=== PATIENT | female | born 1980 | race Caucasian/White ===

== ENCOUNTER 2020-10-02 10:56 | Emergency (ER) | payer BC, MEDICAID ==
[~2020-10-02] VITALS: Ht 167.6 cm; Wt 65.2 kg
[~2020-10-02 10:56] MED LIST: CALC200T3 PO; PREN1TAB60 PO
[2020-10-02] MEDS ORDERED: MORPHINE SULFATE 4 MG/ML, 1ML ONE ×2 (11:29→14:45)
[2020-10-02] MEDS ORDERED: ONDANSETRON 2MG/ML, 2ML ONE ×2 (11:29→18:31)
[2020-10-02] MEDS ORDERED: SODIUM CHLORIDE 0.9% 1,000ML IVBOLUS ONE (11:30)
[2020-10-02] MEDS ORDERED: ONDANSETRON 2MG/ML, 2ML IVPush ONE (11:30)
[2020-10-02] MEDS ORDERED: MORPHINE SULFATE 4 MG/ML, 1ML IVPush PRN (11:30)
--- NOTE | 2020-10-02 11:47 | NUR ---
CLEAN CATCH UA OBTAINED PIV PLACED FREOM WHICH LABS WERE DRAWN THEN MEDICATED PER EMAR FOR PAIN AT 03/27
[2020-10-02 11:55] LABS: BASOPHILS % (AUTO) 0 % (0-1); EOSINOPHILS % (AUTO) 1 % (1-7); LYMPHOCYTES % (AUTO) 11 % (22-44); MEAN CORPUSCULAR HEMOGLOBIN 28.6 pg (27.0-34.8); MONOCYTES % (AUTO) 8 % (2-9); NEUTROPHILS % (AUTO) 80 % (42-75); PLATELET COUNT 205 x10^3/uL (130-400); RED BLOOD COUNT 4.78 x10^6/uL (3.82-5.3); RED CELL DISTRIBUTION WIDTH 13.6 % (9.6-15.2)
[2020-10-02 12:01] LABS: ALBUMIN 3.7 g/dL (3.4-5.0); ANION GAP 8 mmol/L (5-15); CALCIUM 8.7 mg/dL (8.5-10.1); CHLORIDE 105 mmol/L (98-107)
[2020-10-02 12:02] LABS: MICROSCOPIC INDICATED
[2020-10-02 12:08] LABS: ALANINE AMINOTRANSFERASE 22 U/L (12-78); ALKALINE PHOSPHATASE 70 U/L (45-117); BILIRUBIN,TOTAL 0.5 mg/dL (0.2-1.0); TOTAL PROTEIN 7.2 g/dL (6.4-8.2)
--- NOTE | 2020-10-02 12:16 | NUR ---
pain improved to 3/10
[2020-10-02 12:23] LABS: MD SCAN
--- NOTE | 2020-10-02 13:00 | NUR ---
Placed up for recheck as all testing resulted However, pain worsening to 7/10-erp to bedside to eval
--- NOTE | 2020-10-02 13:56 | NUR ---
to ct scan
[2020-10-02] MEDS ORDERED: OMNIPAQUE 350 MG/ML, 100ML BOTTLE ONE (14:11)
--- NOTE | 2020-10-02 14:42 | NUR ---
CT SCAN RESULTS REVIEWED-PROVIDER MADE AWARE LAST MEAL WAS 10/01 AT 8PM (SALAD)
--- NOTE | 2020-10-02 14:58 | NUR ---
REPORT TO [facility]
--- NOTE | 2020-10-02 14:59 | NUR ---
Report from LUCIANO Jimenez. Assumed care.
--- NOTE | 2020-10-02 15:12 | NUR ---
Pt updated on plan, pt resting comfortably, on phone with her dad.
[2020-10-02] MEDS ORDERED: CEFOTETAN PMX 1GM/50ML 50 ML IVPB ONE (15:30)
[2020-10-02] MEDS ORDERED: KETOROLAC 30 MG/1 ML ONE (16:13)
[2020-10-02] MEDS ORDERED: DEXAMETHASONE 4 MG/ML, 1ML ONE (16:13)
[2020-10-02 16:14] VITALS: BP 100/65
--- NOTE | 2020-10-02 16:22 | NUR ---
Pt tranpsorted to [place]. Pt's keys given to security, her will come and pick them up.
[2020-10-02] MEDS ORDERED: BUPIVACAINE/PF 0.5% ONE (16:30)
[2020-10-02] MEDS ORDERED: EPINEPHRINE 1 MG/ML, 1ML ONE (16:30)
[2020-10-02] MEDS ORDERED: FENTANYL PF 100 MCG/2ML ONE (17:31)
[2020-10-02] MEDS ORDERED: MIDAZOLAM 1 MG/ML, 2ML ONE (17:31)
[2020-10-02] MEDS ORDERED: HYDROmorphone 1 MG/ML, 1ML INJ IVPush PRN (18:30)
[2020-10-02] MEDS ORDERED: MEPERIDINE/PF 25MG/0.5ML IVPush PRN (18:30)
[2020-10-02] MEDS ORDERED: ALBUTEROL SULFATE 2.5 MG/3 ML NPPB PRN (18:30)
[2020-10-02] MEDS ORDERED: hydrALAzine 20 MG/ML, 1ML IV PRN (18:30)
[2020-10-02] MEDS ORDERED: FENTANYL PF 100 MCG/2ML IV PRN (18:30)
[2020-10-02] MEDS ORDERED: ACETAMINOPHEN 325 MG TABLET PO PRN (18:30)
[2020-10-02] MEDS ORDERED: LABETALOL 5MG/ML, 20ML IV PRN (18:30)
[2020-10-02] MEDS ORDERED: OXYcodone 5 MG/5 ML ORAL.SOL UDC PO PRN (18:30)
[2020-10-02] MEDS ORDERED: PROMETHAZINE 25 MG/ML, 1ML IVPush PRN (18:30)
[2020-10-02] MEDS ORDERED: PROPOFOL 10 MG/ML, 20ML ONE (18:31)
[2020-10-02] MEDS ORDERED: SUGAMMADEX 200 MG/2 ML IVPush ONE (18:31)
[2020-10-02] MEDS ORDERED: ROCURONIUM 10MG/ML,5ML ONE (18:31)
[2020-10-02] MEDS ORDERED: LIDOCAINE-MPF 2% ,5ML ONE (18:31)
[2020-10-02] MEDS ORDERED: TRAM50TA2 PO (19:58)
== END 2020-10-02 20:15 | disposition home or self-care (01) ==
LOC: ED 13:35
DX: K35.30 Acute appendicitis with localized peritonitis, without perforation or gangrene (principal); Z20.822 Contact with and (suspected) exposure to COVID-19
CPT/HCPCS: 36415; 44970; 74177; 76830; 80053; 81001; 84703; 85025; 87086; 87635; 88304; 96361; 96374; 96375; 99285; J0171; J1100; J1885; J2250; J2270; J2405; J2704; J3010; J3490; J7030; Q9967; S0020